=== PATIENT | male | born 1990 | race Caucasian/White ===

== ENCOUNTER 2019-08-29 20:15 | Emergency (ER) | payer BC, SELFPAY ==
--- NOTE | ~2019-08-29 | CT_ITS ---
EXAMINATION: CT chest w con DATE: 08/29/2019 23:40 INDICATION: Fever, cough. Dysphagia. Decreased appetite. TECHNIQUE: Computed tomography (CT) of the chest was performed with 75 cc Omnipaque 350 intravenous c ontrast. Automated exposure control and iterative reconstruction technique were employed. Exam dose: 409.03 mGy-cm total exam DLP. COMPARISON: 08/29/2021 view chest FINDINGS: A normal heart size. No pericardial or pleural effusion. No thoracic aortic aneurysm or dissection. No hilar or mediastinal mass lesion or lymphadenopathy. No pulmonary infiltrate or consolidation or pulmonary mass lesion is detected. No esophageal dilatation or obstruction is evident. Diffuse hepatic steatosis. IMPRESSION: No significant abnormality Reviewed, dictated and finalized at [facility] Reviewed, dictated and finalized at [facility]. ICE OBSERVER CHIEF IMPRESSION: No significant abnormality
--- NOTE | ~2019-08-29 | XR_ITS ---
EXAMINATION: XR chest 2V DATE: 08/29/2019 20:45 INDICATION: Soreness of breath, cough, fever and left upper abdominal pain. TECHNIQUE: PA and lateral views of the chest were obtained. COMPARISON: None FINDINGS: Subtle opacities in the left lower lobe evident on both the frontal and lateral projections. Right ariel ng is clear. No pulmonary edema, pleural effusion or pneumothorax. The cardiomediastinal silhouette i s normal. Visualized bones and soft tissues are unremarkable. IMPRESSION: 1. Subtle opacities in the left lower lobe suspicious for pneumonia with differential including atele ctasis. Reviewed, dictated and finalized at [facility]. IOTHORACIC ANESTHESIA TECHNICIAN IMPRESSION: 1. Subtle opacities in the left lower lobe suspicious for pneumonia with differ ential including atelectasis.
[2019-08-29 20:32] VITALS: BP 150/98; PULSE 86; RESP 18; TEMP 36.9; O2SAT 96
[2019-08-29 20:47] LABS: Basophils Percent Auto 0.4 % (0.2-1.2); Eosinophils Absolute Auto 0.1 K/mm3 (0-0.3); Eosinophils Percent Auto 2.3 % (0-4.4); Hematocrit 50.3 % (42.0-52.0); Hemoglobin 16.6 g/dL (14.0-18.0); Immature Granulocyte Absolute 0.01 K/mm3 (0.00-0.031); Immature Granulocyte Percent A 0.2 % (0-0.5); Lymphocytes Absolute Auto 1.32 K/mm3 (0.9-3.2); Mean Corpuscular Hemoglobin 28.7 pg (26-34); Mean Platelet Volume 10.3 fl (7.4-10.4); Monocytes Absolute Auto 0.6 K/mm3 (0.1-0.6); Monocytes Percent Auto 12.1 % (2.6-8.5); Neutrophils Absolute Auto 2.7 K/mm3 (1.3-6.7); Platelet Count Result 197 k/mm3 (150-375); Red Blood Count 5.78 M/mm3 (4.6-6.20); Red Cell Distribution Width 13.2 % (11.5-14.5); White Blood Count 4.7 K/mm3 (4.5-10.0)
[2019-08-29 20:58] LABS: Alanine Aminotransferase 78 U/L (4-50); Alkaline Phosphatase 106 U/L (38-126); Aspartate Amino Transferase 73 U/L (17-59); Bilirubin,Total 0.5 mg/dL (0.2-1.3); Blood Urea Nitrogen 11 mg/dL (9-20); Calcium 9.2 mg/dL (8.4-10.2); Carbon Dioxide 28 mmol/L (22-30); Chloride 99 mmol/L (98-107); Estimated CRCL calculation 103 ml/min; Estimated Glomerular Filt Rate > 60; Glucose 114 mg/dL (75-110); Lipase 73 U/L (23-300); Potassium 3.9 mmol/L (3.4-5.0); Sodium 141 mmol/L (137-145)
--- NOTE | 2019-08-29 21:22 | ED.ABDPAIN ---
HPI - Abdominal Pain General Chief Complaint: Abdominal Pain Stated Complaint: abd pain, fever Time Seen by Provider: 08/29/19 21:18 Source: patient and RN notes reviewed Mode of arrival: other Limitations: no limitations History of Present Illness HPI narrative: Pt is a 28 y/o male who presents to the ED with c/o decreased intake since Saturday (08/25/19). He notes that his body will not allow him to swallow. He notes that he chews the food, but he cannot get himself to swallow. He notes that it took him all day to eat two donuts. Pt also reports reports a 100.4 fever and a cough, but denies vomiting, and dysphagia. No ST. Slight cough but nonproductive. No vomiting or diarrhea. MD elicited complaint: other (decreased intake) Onset (ago): day(s) (4) Pain Consistency: constant Location: none Associated symptoms: fever (100.4 degree) and other (cough) Related Data Allergies Allergy/AdvReac Type Severity Reaction Status Date / Time No Known Allergies Allergy Unverified 12/09/15 16:33 Review of Systems Review of Systems: All systems reviewed & are unremarkable except as noted in HPI and below Constitutional: Constitutional: Reports fever(s) (100.4 degree) and Reports other (decreased intake) ENT: Denies dysphagia Respiratory: Respiratory: Reports cough Gastrointestinal: Gastrointestinal: Denies vomiting PMF Past Medical History Medical History (Updated 08/30/19 @ 00:18 by Kalia Wheatley MD) 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 Surgical History Surgical History (Updated 08/29/19 @ 22:09 by Sharlene Coronel) History of orthopedic surgery left shoulder surgery History of wisdom tooth extraction Social History Social History (Updated 08/29/19 @ 22:09 by Sharlene Coronel) Smoking status: Never smoker Gender identity (if verbalized by the patient): Male Exam Const: General: healthy appearing, no acute distress, well developed and other (wearing a mask) Nutritional Appearance: well nourished Orientation/consciousness: patient oriented x3 (alert) and Other orientation findings (Alert) Limitations: no limitations HENMT: Head: normocephalic and atraumatic Ears: external ears normal General nose exam: No nasal discharge present and no epistaxis Face and sinus: face symmetric Mouth: Yes lip normal, Yes tongue normal and Yes moist mucous membranes Throat: posterior oropharynx normal and other (No exudate, no erythema, no swelling) Eyes: Conjunctivae: conjunctivae normal Sclera: sclerae normal EOM: EOMs intact bilaterally Neck: Neck: full ROM, no lymphadenopathy and supple Thyroid: thyroid normal Chest: Chest palpation & inspection: no tenderness Resp: Effort & Inspection: normal respiratory effort Auscultation: clear to auscultation bilaterally, no rales, no rhonchi, no wheezes and other (breath sounds equal) Cardio: Rate: regular rate Rhythm: regular rhythm Heart sounds: no gallops and no murmurs GI: Inspection: non-distended GI Palp: No abdominal tenderness and Yes Soft to palpation Auscultation: other (bowel sounds present) : General: Yes no CVA tenderness Back/Spine/Pelvis: Back: no CVA tenderness Thoracic/Lumbar Spine: thoracic and lumbar spine normal to inspection Skin: General skin exam: normal color and no rashes or lesions noted Neuro: General: patient oriented x3 (alert), moves all extremities and no focal motor deficits Cranial nerves: Yes facial symmetry Speech: normal speech Motor exam (neuro): Motor abnormalities not present Extrem: General: normal to inspection, full ROM and no pedal edema Psych: Affect: normal affect Course Course Emergency Course: w/u including ct is nondiagnostic and pretty unremarkable apart from very slightly elevated transaminases Vital Signs Vital signs: Vital Signs Temperature 36.9 C 08/29/19 20:32 Pulse Rate 86 08/29/19 20:32 Respiratory Rate 18 08/29/19 20:32 Blood Pressure 150/98 H
[2019-08-29] MEDS: AZITHROMYCIN 250 MG TABLET 500 MG PO (22:22)
[2019-08-30 00:42] VITALS: BP 122/74; PULSE 70; RESP 16; TEMP 37; O2SAT 100
== END 2019-08-30 00:43 | disposition home or self-care (01) ==
PROVIDERS: Emergency Medicine; Emergency Provider Emergency Medicine
DX: B34.9 Viral infection, unspecified (principal); R13.10 Dysphagia, unspecified; R50.9 Fever, unspecified
CPT/HCPCS: 36415; 71046; 71260; 80053; 83690; 85025; 87804; 99284; A9270; Q9967

== ENCOUNTER 2022-11-08 15:29 | Emergency (ER) | payer BC, SELFPAY ==
[2022-11-08 15:45] VITALS: BP 137/79; PULSE 77; RESP 16; TEMP 37.2; O2SAT 100
--- NOTE | 2022-11-08 16:15 | ED.URI ---
HPI - URI/Sore Throat General Chief Complaint: Upper Respiratory Infection Stated Complaint: Sore Throat Time Seen by Provider: 11/08/22 16:08 Source: patient Mode of arrival: ambulatory Limitations: no limitations History of Present Illness HPI Narrative: Patient presents today complaining of sore throat since this morning. Denies any additional symptoms. Denies sick contacts. Currently rates his pain 3/10, only with swallowing. He has been taking ibuprofen without relief. Related Data Home Medications Medication Instructions Recorded Confirmed No Home Medications 11/08/22 11/08/22 Allergies Allergy/AdvReac Type Severity Reaction Status Date / Time No Known Allergies Allergy Unverified 11/08/22 16:02 Review of Systems Review of Systems: CONSTITUTIONAL: Denies body aches, fever, chills, or sweats. EYES: Denies visual changes, redness, or discharge. ENT: Denies rhinorrhea, congestion, or otalgia.+ sore throat CARDIOVASCULAR: Denies chest pain, palpitations, or edema. RESPIRATORY: Denies cough or dyspnea. GASTROINTESTINAL: Denies abdominal pain, nausea, vomiting, or diarrhea. GENITOURINARY: Denies dysuria or hematuria. SKIN: Denies rash, itching, or wounds. MUSCULOSKELETAL: Denies back pain, joint pain, or myalgia. NEUROLOGIC: Denies headache, numbness, tingling, or weakness. PSYCH: Denies depression or anxiety. 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 Please see nursing chart for further information. There is no relevant family history pertinent to the presenting complaint Exam Narrative: GENERAL: Well-appearing, well-nourished, and in no acute distress. HEAD: Normocephalic, atraumatic. EYES: EOMI. No redness or drainage. Conjunctivae normal. ENT: Mucous membranes pink and moist. Nares clear. No rhinorrhea. TMs normal bilaterally. Throat erythematous. Tonsils 3+ with white exudate. Uvula midline. NECK: Normal AROM. Supple. No lymphadenopathy. CHEST: No respiratory distress. Clear to auscultation. HEART: Regular rate and rhythm. No murmur appreciated. EXTREMITIES: Normal range of motion. No edema. SKIN: Warm, dry, no rash. Capillary refill normal. Normal skin turgor. NEURO: No focal deficits. Alert and oriented x3. Gait steady. PSYCH: Normal affect. No signs of depression or anxiety. Course Course Level of Care: Express Care Visit Vital Signs Vital signs: Vital Signs Temperature 99 F 11/08/22 15:45 Pulse Rate 77 11/08/22 15:45 Respiratory Rate 16 11/08/22 15:45 Blood Pressure 137/79 11/08/22 15:45 Pulse Oximetry 100 11/08/22 15:45 Oxygen Delivery Room Air 11/08/22 15:45 Temperature 99 F 11/08/22 15:45 Pulse Rate 77 11/08/22 15:45 Respiratory Rate 16 11/08/22 15:45 Blood Pressure 137/79 11/08/22 15:45 Pulse Oximetry 100 11/08/22 15:45 Oxygen Delivery Room Air 11/08/22 15:45 Reviewed. Pt has been instructed to follow up with his PCP regarding his elevated blood pressure today. MDM - URI/Sore Throat MDM Narrative Medical decision making narrative: Rapid strep negative. Culture pending. No prescription medications indicated at this time. Anticipatory guidance given. Differential Diagnosis Differential diagnosis: Likely upper respiratory infection, viral infection, pharyngitis and other (Strep
== END 2022-11-08 16:20 | disposition home or self-care (01) ==
PROVIDERS: Emergency Provider Nurse Practitioner
DX: J02.9 Acute pharyngitis, unspecified (principal)
CPT/HCPCS: 87081; 87880; 99213; G0463